=== PATIENT | female | born 1990 | race African-American/Black ===

== ENCOUNTER 2022-04-02 09:44 | Outpatient (CLI) | payer OTHER, SELFPAY ==
[2022-04-02 10:07] LABS: Hematocrit 31.2 % (37.0-47.0); Hemoglobin 8.3 g/dL (12.0-15.0); Immature Platelet Fraction Pct 2.5 % (0.9-11.2); Mean Corpuscular HGB Conc 26.6 g/dl (32-36); Mean Corpuscular Hemoglobin 16.5 pg (26-34); Mean Corpuscular Volume 62.2 fl (80-100); Mean Platelet Volume 10.2 fl (7.4-10.4); Platelet Count Result 345 k/mm3 (150-375); Red Blood Count 5.02 M/mm3 (4.2-5.4); Red Cell Distribution Width 20.1 % (11.5-14.5); White Blood Count 7.2 K/mm3 (4.5-10.0)
== END 2022-04-02 09:45 | disposition home or self-care (01) ==
LOC: ANHLAB 09:47
PROVIDERS: Visit Provider Obstetrics & Gynecology
DX: N92.1 Excessive and frequent menstruation with irregular cycle (principal)
CPT/HCPCS: 36415; 85027; 85055

== ENCOUNTER 2022-04-09 01:26 | Day surgery (SDC) | payer OTHER, SELFPAY ==
[2022-04-01 16:01] VITALS: BMI 43.3
--- NOTE | 2022-04-01 16:22 | PC.NURSE ---
Report to the Outpatient Waiting Room, entrance under the green pavilion located off [facility], at time 0730 on date 04/09/22. OR Time: 0930__. Time changes happen often and if your time is changed the preop area will call you the afternoon before. - You and your visitor will be asked to self-screen and do not enter if you have any COVID symptoms. - We encourage only one visitor and NO visitors under age 16 are allowed at this time. Your visitor will receive communication by the phone number that is given day of service. - The patient visitor is requested to social distance or may leave the building when not with patient due to restrictions. - A mask is required within the hospital. Patients may have clear liquids (water, carbonated beverages, clear teas, apple juice) until 3 hours prior to surgery with a maximum of 20 ounces. - No food from midnight until time of surgery - Infants may have breast milk until 4 hours before surgery, formula 6 hours prior to surgery. - Children will be allowed to drink immediately following surgery. If applicable, please bring a bottle or sippy cup to assist with drinking. Juice, water, soda, and popsicles are readily available. For infants on formula, please bring formula the day of surgery. Pacifiers are allowed. Take the following medications with a SIP of water the morning of surgery: albuterol_ Medications to discontinue per physician _n/a Date to take last dose Please no make-up, nail mohawk, hairspray, perfume, deodorant, or body powder the day of surgery. No jewelry (including any body piercings) or valuables the day of surgery, leave them at home. Please take a shower or bath the night before, or the morning of, surgery with an antibacterial soap. Wear comfortable, loose fitting clothing. Children are encouraged to wear pajamas. - Jewelry must be removed prior to entering the operating room. Rings and piercings that are not removed may be cut off. - The hospital will not accept responsibility for valuables. - Please leave all valuables, including medications, at home the day of surgery. If you are going home after surgery, a licensed over the road driver must drive you home. - NO public transportation without another adult. - We recommend that an adult stay with you for 24 hours following discharge. - We also recommend that you do not drive, make important decision, drink alcoholic beverages, or take any drugs that were not prescribed by your health care provider for at least 24 hours after your discharge time. For Pediatric surgeries, we recommend two adults accompany the child home. Follow any additional instructions given to you from your surgeon. If you or anyone in your household have experienced Covid symptoms in the past week, please notify your surgeon or the nurse liaison at the phone number below for possible testing. Telephone instructions given to Tosha Shaffer and asked if any additional questions and then verbalized understanding. Patient advised to call surgeon office or pre surgery nurse liaison [phone] if any additional questions.
--- NOTE | 2022-04-07 17:54 | PM.IMHP ---
H&P: HPI History of Present Illness Date/Time: 04/07/22 17:54 31-year-old female 3 para 3003 presents with complaints of menstrual cycles lasting 5-7 days 3-4 days very heavy with significant amount of clotting and cramping. Also with a lot of pelvic pressure and cramping throughout the month. This cutting her significant issues at work and socially. We have discussed less definitive treatment in the form of endometrial ablation but at this point she desires definitive care with hysterectomy and ovarian preservation. Recent ultrasound revealed ultrasound with 10 to 12 size uterus and fundal fibroid. Chief Complaint: Menometrorrhagia Review of Systems Review of Systems: All systems reviewed & are unremarkable except as noted in HPI and below PMFSH Past Medical History Medical History Asthma Fibroids Migraines Surgical History Surgical History Delivery by section x 3 H/O tubal ligation (10/08/17) Family History Family History Grandparent Diabetes mellitus maternal grandmother and grandfather Liver cancer maternal grandmother Lung cancer paternal grand father Mother Cerebrovascular accident Social History Social History Smoking packs per day: 1 Smoking cigarettes per day: 20.0 Years smoked: 12 Smoking pack-years: 12.00 Smoking status: Former smoker Tobacco type: cigarettes Smoking end date: 06/21/19 Alcohol intake: never Drinks per week: 4 Substance use: never Substance use type: marijuana Other substance usage details: 2-3 times a week Additional living arrangements comments: 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[employer] Gender identity (if verbalized by the patient): Female Sexual Orientation (if Verbalized by the Patient): Straight or Heterosexual Spiritual care concerns: No Meds Home Medications and Allergies Home Medications Medication Instructions Recorded Confirmed Type albuterol sulfate 90 mcg/actuation 1 puff inhalation Q4H PRN 12/24/21 04/01/22 History aerosol inhaler Shortness Of Breath [id number]-[id number]-[id number] 250 1 tablet PO Q4-6H PRN Migraine 12/24/21 04/01/22 History mg-250 mg-65 mg tablet (Excedrin Headache Migraine) Allergies Allergy/AdvReac Type Severity Reaction Status Date / Time No Known Allergies Allergy Unverified 02/06/22 10:29 Exam Const: General: cooperative, healthy appearing and comfortable Resp: Effort & Inspection: normal respiratory effort Auscultation: clear to auscultation bilaterally Cardio: Rate: regular rate Rhythm: regular rhythm GI: Inspection: normal to inspection and incision Auscultation: normal bowel sounds : External Female Exam: normal external appearance Speculum Exam - Vagina: normal appearance of the vagina Speculum Exam - Cervix: normal appearance of the cervix Bimanual exam- vagina & uterus: enlarged ( 10-12 week size) and Uterine tenderness Bimanual Exam- Adnexa, other: normal adnexae Assessment and Plan Assessment and plan (1) Menometrorrhagia: Code(s): N92.1 - Excessive and frequent menstruation with irregular cycle Status: Acute Assessment and Plan: we will proceed with robotic assisted laparoscopic hysterectomy with bilateral salpingectomy ( she has had a prior tubal ligation will remove what ever segment of tube is remaining). I have discussed with the patient at length regarding the potential for either an abdominal procedure or a mini-laparotomy to remove specimen if unable to be performed robotically. Her history of 3 previous deliveries increases risk of adhesions or other anatomic abnormalities which may result and intraoperative bowel or bladder damage wi
--- NOTE | 2022-04-08 10:34 | P.PNAN_ITS ---
Anes - Initial Pre Proc Eval Procedure: Operation Date: 04/09/22 09:30 Proposed Procedures p Robotic Assisted Total Laparoscopic Hysterectomy with Bilateral Salpingectomy - Robb Martinez MD Date/Time: 04/08/22 10:34 Surgeon: Robb Martinez MD Pre Op Diagnosis: uterine fibroid Patient Data Age: 31 Gender: F Height: 1.6 m Weight: 111 kg Allergies Allergy/AdvReac Type Severity Reaction Status Date / Time No Known Allergies Allergy Verified 04/09/22 07:56 Home Medications Medication Instructions Recorded Confirmed Type albuterol sulfate 90 mcg/actuation 1 puff inhalation Q4H PRN 12/24/21 04/01/22 History aerosol inhaler Shortness Of Breath [id number]-[id number]-zenulgsq 250 1 tablet PO Q4-6H PRN Migraine 12/24/21 04/01/22 History mg-250 mg-65 mg tablet (Excedrin Headache Migraine) Patient hx anesthesia problems: none Family hx anesthesia problems: none Results Review: All pre-operative results and documents have been reviewed as part of the pre- operative evaluation. [facility] Past Medical History Medical History Asthma Fibroids Migraines Surgical History Surgical History Delivery by section x 3 H/O tubal ligation (10/08/17) Family History Family History Grandparent Diabetes mellitus maternal grandmother and grandfather Liver cancer maternal grandmother Lung cancer paternal grand father Mother Cerebrovascular accident Social History Social History Smoking packs per day: 1 Smoking cigarettes per day: 20.0 Years smoked: 12 Smoking pack-years: 12.00 Smoking status: Former smoker Tobacco type: cigarettes Smoking end date: 06/21/19 Alcohol intake: current Drinks per week: 4 Substance use: current Substance use type: marijuana Other substance usage details: 2-3 times a week Living arrangements: with family Additional living arrangements comments: 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[employer] Gender identity (if verbalized by the patient): Female Sexual Orientation (if Verbalized by the Patient): Straight or Heterosexual Spiritual care concerns: No Anes - Eval Final PreProcedure Day of Procedure 04/08/22 10:34 Patient weight: morbidly obese Heart: regular rate and rhythm Lungs: clear to auscultation Airway: Mallampati scale class III Neurological: alert and oriented Last oral intake: >/= 8 hours ASA classification: III Emergent: no Anesthetic plan: proceed Anesthesia type and monitoring: general ETT and standard monitoring Results Review: All pre-operative results and documents have been reviewed as part of the pre- operative evaluation. Informed Consent: The patient's anesthetic plan and its attendant risks and benefits were discussed with the patient/family/POA. Questions were solicited and answers provided to the satisfaction of the patient/family/POA.
[2022-04-09] VITALS (22 sets, daily range): BP systolic 111–146; BP diastolic 51–87; PULSE 62–109; RESP 13–19; TEMP 36.1–37.2; O2SAT 97–100
--- NOTE | 2022-04-09 07:19 | WPDHPUPDATE1 ---
History and Physical Update Update Date/Time: 04/09/22 07:19 History and Physical has been reviewed, including an updated exam of the patient. There are NO changes in the patient's condition. Risks, benefits, and alternatives have been discussed and questions answered. Patient agrees to proceed with procedure.
[2022-04-09] MEDS: LACTATED RINGERS 1,000 ML 30 ML IV CONT ×2 (08:45→13:23)
[2022-04-09] MEDS: KETOROLAC 15 MG/ML VIAL (*BKC) IV PUSH (08:45)
[2022-04-09] MEDS: ACETAMINOPHEN 500 MG TABLET 1000 MG PO (08:45)
[2022-04-09] MEDS: ceFAZolin 2 GM/D5W 50 ML 2 GM/50 ML BAG IVPB (09:42)
--- NOTE | 2022-04-09 11:28 | SUR.OPER ---
1125 DR ZUNIGA IN OR FOR CONSULT
--- NOTE | 2022-04-09 11:42 | SUR.OPER ---
DR ZUNIGA OUT OF OR 1147
[2022-04-09] MEDS: ceFAZolin SODIUM 1 GM VIAL IV PUSH (12:04)
--- NOTE | 2022-04-09 12:13 | SUR.OPER ---
DR ZUNIGA IN OR CONSULT [id number]
--- NOTE | 2022-04-09 13:05 | W.PM.PROC2 ---
Procedure Note - Detailed Date of Procedure 04/09/22 Pre-op Diagnosis 1. Menometrorrhagia 2. Uterine fibroid 3. Previous section x3 Post-op Diagnosis Same (4. Pelvic adhesions 5. Cystotomy) Procedure Performed 1. Laparoscopic assisted supracervical hysterectomy with ovarian preservation 2. Adhesiolysis 3. Repair of bladder defect by Dr. Linares Surgeon Robb Martinez MD Anesthesia General Findings 1. Dense pelvic adhesions 2. Uterine fibroid 3. Enlarged uterus 4. Bladder flap adhesions Description of Procedure Patient was prepped and draped usual manner for this procedure. Cervical instruments placed for uterine mobility. Abdominal trocar sites were marked and trocars were placed under direct visualization. The DA Lloyd system was then attached to the trocars and the surgeon moved to the console. Omental adhesions of throughout as well as significant bladder flap adhesions were noted. The omental adhesions were cauterized and cut to remove them from the operative field. The anatomy of the pelvis was distorted due to multiple previous surgeries and therefore the bladder at this point was filled with 300cc of fluid and was found to be posterior and lateral to the uterus. The round ligaments revealed to be delineated and these were cauterized and cut and the posterior leaf the broad ligament was incised. Anterior flap could not be incised due to adhesions and the location of the fibroid. The fibroid was dissected off of the bladder and the tip of the Medina bulb was noted during this process. There was no significant spillage though definitively the Medina bulb was identified and there was a definitive defect in the bladder through which the tip of the Medina catheter could be seen. At this for the procedure Dr. Linares entered the room and inspected the area in question. Also full dissection of the bladder was undertaken and decision was made to repair this defect later in the case. Therefore the uterus was continued to be dissected and once the uterine vessels had been cauterized and cut along the lower portion of the uterus such that a supracervical hysterectomy was performed. The bed of the cervical stump was cauterized at this point. Irrigation was undertaken and the specimens were placed in Endo-Catch bags. Dr. Velázquez entered the room and using 2 0 Vicryl suture of the defect was closed in a running manner. Bladder was again back filled with 500cc of fluid and no spillage was noted. Irrigation was undertaken and all the old blood was removed. Dorinda was placed over the cervical stump and was hemostatic. Attention was placed the abdominal cavity and the right upper incision was extended slightly to remove the uterus and the fibroids. 0 Vicryl was then used to approximate the fascial edge, subcutaneous tissue was approximated 0 plain, and this incision as well as the other incisions were closed with a subcuticular manner of 4-0 Monocryl. At this point the patient was sent to recovery room in stable condition. Due to starting her case with a hemoglobin of 8 and 500cc blood loss we will be transfusing 2units packed red blood cells. Also we will keep her catheter in place for 1 week. Estimated Blood Loss 500 Drains Yes (Medina) Packing No Pathology Yes Complications Other complications (Cystotomy) Condition Stable Disposition PACU [facility] Billing Surgery - Charge Forward: Surgery Billing
[2022-04-09] MEDS: fentaNYL CITRATE INJ (*CRX) 100 MCG/2 ML VIAL 25 MCG IV PUSH ×4 (13:48→15:22)
--- NOTE | 2022-04-09 14:38 | SUR.PHASEI ---
1413: Simple mask removed.
[2022-04-09] MEDS: FUROSEMIDE INJ 40 MG/4 ML VIAL IV PUSH (15:25)
--- NOTE | 2022-04-09 15:57 | ADMGEN ---
This patient, Tosha Shaffer, was admitted to OB 2nd Floor Room 285-00. Patient/family oriented to hospital policies and general routines including ID bracelet, bed and alarms, visiting hours, pain management, procedures, bathroom and other care routines, personal items, smoking policy, room service/diet, and visiting hours. Information on how to activate the Rapid Response Team has been discussed. Patient/Family are encouraged to report perceived risks to care and to ask questions if they do not understand what they are told or what they should do.
[2022-04-09] MEDS: KETOROLAC 30 MG/ML VIAL (*BKC) IV PUSH (16:14)
[2022-04-09 16:35] LABS: Hematocrit 27.4 % (37.0-47.0); Hemoglobin 7.3 g/dL (12.0-15.0)
[2022-04-09] MEDS: TUBING, BLOOD PLUM PUMP TUBING 1 EACH XX (16:55)
[2022-04-09] MEDS: SODIUM CHLORIDE 0.9% IV 250 ML 30 ML IV CONT (16:55)
[2022-04-09] MEDS: HYDROcodone/acetaminophen (*CRX) 5-325 MG TABLET 1 TAB PO (19:56)
[2022-04-10 00:30] VITALS: BP 128/77; PULSE 88; RESP 18; TEMP 36.1
[2022-04-10] MEDS: IBUPROFEN 600 MG TABLET PO ×2 (00:33→09:17)
[2022-04-10] MEDS: HYDROcodone/acetaminophen (*CRX) 5-325 MG TABLET 1 TAB PO ×3 (00:33→14:52)
[2022-04-10 04:45] VITALS: BP 122/80; PULSE 90; RESP 16; TEMP 36.7
[2022-04-10 05:25] LABS: Basophils Percent Auto 0.2 % (0.2-1.2); Eosinophils Absolute Auto 0.2 K/mm3 (0-0.3); Eosinophils Percent Auto 1.3 % (0-4.4); Hemoglobin 9.4 g/dL (12.0-15.0); Immature Granulocyte Absolute 0.09 K/mm3 (0.00-0.031); Immature Granulocyte Percent A 0.6 % (0-0.5); Immature Platelet Fraction Pct 2.1 % (0.9-11.2); Lymphocytes Absolute Auto 1.69 K/mm3 (0.9-3.2); Mean Corpuscular HGB Conc 29.4 g/dl (32-36); Mean Corpuscular Hemoglobin 19.6 pg (26-34); Mean Corpuscular Volume 66.7 fl (80-100); Mean Platelet Volume 10.4 fl (7.4-10.4); Monocytes Absolute Auto 0.9 K/mm3 (0.1-0.6); Monocytes Percent Auto 5.6 % (2.6-8.5); Neutrophils Absolute Auto 12.5 K/mm3 (1.3-6.7); Neutrophils Percent Auto 81.3 % (45.5-73.1); Platelet Count Result 323 k/mm3 (150-375); Red Cell Distribution Width 24.8 % (11.5-14.5); White Blood Count 15.4 K/mm3 (4.5-10.0)
[2022-04-10 07:47] LABS: Platelet Estimate Adequate (Adequate)
[2022-04-10 07:48] LABS: Hypochromasia 1+ (NORMAL); Schistocytes 1+ (NORMAL)
[2022-04-10 07:49] LABS: Anisocytosis 1+ (NORMAL); Poikilocytosis 1+ (NORMAL)
--- NOTE | 2022-04-10 08:04 | P.PNAN_ITS ---
Anes - Prog Note Post-Op Date/Time: 04/10/22 08:04 Cardiovascular status: normal Respiratory status: normal Airway patency: baseline Mental status: baseline Post-Op hydration status: normal Vital Signs: Last Vital Signs Temp 36.7 C 04/10/22 04:45 Pulse 90 04/10/22 04:45 Resp 16 04/10/22 04:45 BP 122/80 04/10/22 04:45 Pulse Ox 100 04/09/22 20:10 O2 Del Method Room Air 04/09/22 16:00 O2 Flow Rate 8 04/09/22 14:10 Pain Score (VAS): 08/28 I/O: Intake & Output 04/09/22 04/10/22 04/10/22 23:59 07:59 15:59 Intake Total 484 320 Output Total 1300 625 Balance -816 -305 Laboratory Tests 04/10/22 04:54 04/09/22 04/09/22 04/10/22 08:26 13:29 04:54 WBC 15.4 H RBC 4.80 Hgb 7.3 L 9.4 L Hct 27.4 L 32.0 L MCV 66.7 L MCH 19.6 L MCHC 29.4 L RDW 24.8 H Plt Count 323 MPV 10.4 Immature Gran % (Auto) 0.6 H Neut % (Auto) 81.3 H Lymph % (Auto) 11.0 L [place] % (Auto) 5.6 Eos % (Auto) 1.3 Baso % (Auto) 0.2 Lymph # (Auto) 1.69 [place] # (Auto) 0.9 H Eos # (Auto) 0.2 Baso # (Auto) 0.0 Abs Immat Gran (auto) 0.09 H Absolute Neuts (auto) 12.5 H Absolute Nucleated RBC 0.0 Nucleated RBC % 0.0 Platelet Estimate Adequate % Immature Plt Fraction 2.1 Hypochromasia 1+ Poikilocytosis 1+ Anisocytosis 1+ Schistocytes 1+ Blood Type B Positive Antibody Screen Negative Crossmatch See Detail Post-procedural complaints: none Patient Feedback: Patient satisfied with anesthetic care.
--- NOTE | 2022-04-10 08:13 | WPDURCON ---
Assessment and Plan Assessment and plan (1) Bladder injury: Code(s): S37.20XA - Unspecified injury of bladder, initial encounter Status: Acute Assessment and Plan: Intra-operative repair bladder injury Urology Consult Note HPI Date Seen: 04/10/22 Requesting Physician: Robb Martinez MD Primary Care Provider: JEWEL SUPERVISOR PHYSICIAN Consult Narrative Narrative: Tosha Shaffer is a 31 year old female, unknown to our practice in past, bladder was asked to see as an intraoperative consultation to evaluate for possible repair of a bladder injury during the course of robotic hysterectomy. Careful evaluation, both with a distended and decompressed bladder, showed an area of possible bladder wall thickening near the stone but without obvious extravasation of methylene blue stay saline. For specifics on my part of the operative procedure see my dictated operative note. Review of Systems Review of Systems: ROS unobtainable: Yes unobtainable due to endotracheal tube PMFSH Past Medical History Medical History Asthma Fibroids Migraines Surgical History Surgical History Delivery by section x 3 H/O tubal ligation (10/08/17) Family History Family History Grandparent Diabetes mellitus maternal grandmother and grandfather Liver cancer maternal grandmother Lung cancer paternal grand father Mother Cerebrovascular accident Social History Social History Smoking packs per day: 1 Smoking cigarettes per day: 20.0 Years smoked: 12 Smoking pack-years: 12.00 Smoking status: Former smoker Tobacco type: cigarettes Smoking end date: 06/21/19 Alcohol intake: current Drinks per week: 4 Substance use: current Substance use type: marijuana Other substance usage details: 2-3 times a week Living arrangements: with family Additional living arrangements comments: 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[employer] Gender identity (if verbalized by the patient): Female Sexual Orientation (if Verbalized by the Patient): Straight or Heterosexual Spiritual care concerns: No Meds Home Medications and Allergies Home Medications Medication Instructions Recorded Confirmed Type albuterol sulfate 90 mcg/actuation 1 puff inhalation Q4H PRN 12/24/21 04/01/22 History aerosol inhaler Shortness Of Breath gswjwcz-geqocukttdjbu-gzthojyb 250 1 tablet PO Q4-6H PRN Migraine 12/24/21 04/01/22 History mg-250 mg-65 mg tablet (Excedrin Headache Migraine) Allergies Allergy/AdvReac Type Severity Reaction Status Date / Time No Known Allergies Allergy Verified 04/09/22 08:56 Vital Signs Vital Signs - 24 hr 04/09/22 08:49 04/09/22 13:23 04/09/22 13:40 Temperature 98 F 97.5 F L Pulse Rate 67 109 H 80 Respiratory Rate 14 18 17 Blood Pressure 146/73 H 133/75 117/64 Pulse Oximetry 100 100 100 Oxygen Delivery Room Air Simple Face Mask Simple Face Mask Oxygen Flow Rate 8 8 04/09/22 13:55 04/09/22 14:10 04/09/22 14:25 Temperature Pulse Rate 74 75 75 Respiratory Rate 15 15 17 Blood Pressure 113/63 111/63 122/67 Pulse Oximetry 100 100 98 Oxygen Delivery Simple Face Mask Simple Face Mask Room Air Oxygen Flow Rate 8 8 04/09/22 14:40 04/09/22 14:55 04/09/22 15:10 Temperature Pulse Rate 72 68 65 Respiratory Rate 17 14 16 Blood Pressure 122/68 118/66 112/51 L Pulse Oximetry 99 100 100 Oxygen Delivery Room Air Room Air Room Air Oxygen Flow Rate 04/09/22 15:25 04/09/22 15:40 04/09/22 14:34 Temperature 97.7 F Pulse Rate 63 62 75 Respiratory Rate 18 13 18 Blood Pressure 134/79 134/86 119/68 Pulse Oximetry 100 100 97 Oxygen Delivery Room Air Room Air Oxygen Flow Rate 03/22
[2022-04-10 08:15] VITALS: BP 138/72; PULSE 82; RESP 16; TEMP 36.9; O2SAT 100
--- NOTE | 2022-04-10 08:25 | W.PM.PROC2 ---
Procedure Note - Detailed Date of Procedure 04/10/22 Pre-op Diagnosis uterine fibroid, small bladder injury Post-op Diagnosis Same Procedure Performed Repair of a small bladder injury and bladder dome Surgeon Abram Linares MD Description of Procedure Towards the and, and subsequent to completion of robotic hysterectomy by Dr. Martinez, careful inspection of the bladder was undertaken both in a decompressed state and after filling with methylene stained saline to 500 cc. Was no obvious extravasation of urine but there did appear to be about 1-2 cm area in the dome of the bladder where the detrusor muscle had been compromised needed thinning of the bladder wall. I reinforced the detrusor muscle at that site with a running 2-0 Vicryl. The bladder was again filled to 500 cc, again found showed no evidence of extravasation. A discuss management of the Medina catheter with Dr. Martinez and recommended that we leave it indwelling for 1 week. Estimated Blood Loss 500 Packing No Pathology None sent Condition Stable
--- NOTE | 2022-04-10 08:47 | PM.GYNPNOP ---
GAS ENGINE MECHANIC - A/P Postoperative Procedures: Procedures Operation Date: 04/09/22 09:30 Actual Procedure Side Surgeon p Robotic Assisted Total Laparoscopic Hysterectomy with Adhesiolysis Bilateral Robb Martinez MD s Robotic Repair of Bladder Defect Not Applicable Abram Linares MD Time Spent With Patient Time: Total time spent is greater than 50% in coordination of care (as documented) at patient's floor/unit and/or counseling patient: Time with patient: less than 15 minutes GAS ENGINE MECHANIC- PN:Subj Post-Op Subjective Date/time seen: 04/10/22 08:47 31-year-old female postoperative day 1 from laparoscopic supracervical hysterectomy and myomectomy. Cystotomy also occurred which was repaired by Urology. She has tolerated regular diet as on oral pain medication and overall doing well. Physical exam vital signs are stable Abdomen soft and appropriately tender Labs appropriate I have discussed at length the intraoperative findings and need for continued Medina drainage. Also prophylactic antibiotics. Option of leg bag has been discussed and she will decide prior to discharge if she wants to do this. Other questions have been answered and she will return in 1 week for Medina removal. GAS ENGINE MECHANIC - PN: Obj Data Vital Signs Vital Signs: Vital Signs - 24 hr 04/09/22 08:49 04/09/22 13:23 04/09/22 13:40 Temperature 98 F 97.5 F L Pulse Rate 67 109 H 80 Respiratory Rate 14 18 17 Blood Pressure 146/73 H 133/75 117/64 Pulse Oximetry 100 100 100 Oxygen Delivery Room Air Simple Face Mask Simple Face Mask Oxygen Flow Rate 8 8 04/09/22 13:55 04/09/22 14:10 04/09/22 14:25 Temperature Pulse Rate 74 75 75 Respiratory Rate 15 15 17 Blood Pressure 113/63 111/63 122/67 Pulse Oximetry 100 100 98 Oxygen Delivery Simple Face Mask Simple Face Mask Room Air Oxygen Flow Rate 8 8 04/09/22 14:40 04/09/22 14:55 04/09/22 15:10 Temperature Pulse Rate 72 68 65 Respiratory Rate 17 14 16 Blood Pressure 122/68 118/66 112/51 L Pulse Oximetry 99 100 100 Oxygen Delivery Room Air Room Air Room Air Oxygen Flow Rate 04/09/22 15:25 04/09/22 15:40 04/09/22 14:34 Temperature 97.7 F Pulse Rate 63 62 75 Respiratory Rate 18 13 18 Blood Pressure 134/79 134/86 119/68 Pulse Oximetry 100 100 97 Oxygen Delivery Room Air Room Air Oxygen Flow Rate 04/09/22 14:40 04/09/22 14:45 04/09/22 14:50 Temperature 96.9 F L 96.9 F L 98.0 F Pulse Rate 75 74 77 Respiratory Rate 17 13 19 Blood Pressure 122/68 114/59 L 123/70 Pulse Oximetry 99 100 100 Oxygen Delivery Oxygen Flow Rate 04/09/22 15:16 04/09/22 16:55 04/09/22 16:56 Temperature 97.4 F L 97.7 F 97.5 F L Pulse Rate 69 82 83 Respiratory Rate 18 16 16 Blood Pressure 127/87 127/66 143/74 H Pulse Oximetry 100 100 100 Oxygen Delivery Oxygen Flow Rate 04/09/22 16:00 04/09/22 16:00 04/09/22 17:10 Temperature 97.2 F L 98.0 F Pulse Rate 78 79 Respiratory Rate 18 18 Blood Pressure 137/73 136/70 Pulse Oximetry 100 100 Oxygen Delivery Room Air Oxygen Flow Rate 04/09/22 18:10 04/09/22 19:10 04/09/22 20:10 Temperature 97.3 F L 99.0 F 98.3 F Pulse Rate 85 81 96 Respiratory Rate 16 18 18 Blood Pressure 132/69 125/85 120/66 Pulse Oximetry 100 100 100 Oxygen Delivery Oxygen Flow Rate 04/09/22 20:10 04/10/22 00:30 04/10/22 04:45 Temperature 98.3 F 96.9 F L 98.0 F Pulse Rate 96 88 90 Respiratory Rate 18 18 16 Blood Pressure 120/66 128/77 122/80 Pulse Oximetry 100 Oxygen Delivery Oxygen Flow Rate Intake/Output Intake/Output: Intake & Output 04/07/22 04/08/22 04/09/22 04/10/22 23:59 23:59 23:59 23:59 Intake Total 1284 320 Output Total 1520 625 Balance -236 -305 Meds/Results Medications: Active Medications Generic Name Dose Route Start Last Admin Trade Name Freq PRN Reason Stop Dose Admin Hydrocodone Bitart/Acetaminophen 1 tab 04/09/22 15:52 04/10/22 00:33 Hydrocodone/Acetaminophen (*Crx) 5-325 Mg Table
[2022-04-10] MEDS: SIMETHICONE 80 MG TAB.CHEW PO ×2 (09:18→14:52)
--- NOTE | 2022-04-10 10:11 | WPDUROPN2 ---
Progress Note: A&P Assessment and Plan (1) Menometrorrhagia: Code(s): N92.1 - Excessive and frequent menstruation with irregular cycle Status: Acute Assessment and Plan: Tolerating catheter very well. I discussed findings in OR with pt. She understands reasoning behing indwelling catheter and is comfortble with plan. (2) Bladder injury: Code(s): S37.20XA - Unspecified injury of bladder, initial encounter Status: Acute Subjective Subjective Date/Time Seen: 04/10/22 10:11 Comfortable, tolerating breakfast Review of Systems Cardiovascular: Cardiovascular: Denies chest pain, Denies lightheadedness, Denies palpitations and Denies dyspnea Respiratory: Respiratory: Denies dyspnea Gastrointestinal: Gastrointestinal: Denies diarrhea, Denies nausea and Denies vomiting Genitourinary: Genitourinary: Denies hematuria and Denies dysuria Endocrine: Endocrine: Denies palpitations Exam Const: General: no acute distress Resp: Effort & Inspection: normal respiratory effort GI: Inspection: non-distended GI Palp: No abdominal tenderness and No Guarding due to palpation present (GI) Auscultation: normal bowel sounds Urinary Catheter: Urinary Catheter: patent and draining and urine clear Objective Data Vital Signs Vital Signs: Vital Signs - 24 hr 04/09/22 13:23 04/09/22 13:40 04/09/22 13:55 Temperature 97.5 F L Pulse Rate 109 H 80 74 Respiratory Rate 18 17 15 Blood Pressure 133/75 117/64 113/63 Pulse Oximetry 100 100 100 Oxygen Delivery Simple Face Mask Simple Face Mask Simple Face Mask Oxygen Flow Rate 8 8 8 04/09/22 14:10 04/09/22 14:25 04/09/22 14:40 Temperature Pulse Rate 75 75 72 Respiratory Rate 15 17 17 Blood Pressure 111/63 122/67 122/68 Pulse Oximetry 100 98 99 Oxygen Delivery Simple Face Mask Room Air Room Air Oxygen Flow Rate 8 04/09/22 14:55 04/09/22 15:10 04/09/22 15:25 Temperature Pulse Rate 68 65 63 Respiratory Rate 14 16 18 Blood Pressure 118/66 112/51 L 134/79 Pulse Oximetry 100 100 100 Oxygen Delivery Room Air Room Air Room Air Oxygen Flow Rate 04/09/22 15:40 04/09/22 14:34 04/09/22 14:40 Temperature 97.7 F 96.9 F L Pulse Rate 62 75 75 Respiratory Rate 13 18 17 Blood Pressure 134/86 119/68 122/68 Pulse Oximetry 100 97 99 Oxygen Delivery Room Air Oxygen Flow Rate 04/09/22 14:45 04/09/22 14:50 04/09/22 15:16 Temperature 96.9 F L 98.0 F 97.4 F L Pulse Rate 74 77 69 Respiratory Rate 13 19 18 Blood Pressure 114/59 L 123/70 127/87 Pulse Oximetry 100 100 100 Oxygen Delivery Oxygen Flow Rate 04/09/22 16:55 04/09/22 16:56 04/09/22 16:00 Temperature 97.7 F 97.5 F L 97.2 F L Pulse Rate 82 83 78 Respiratory Rate 16 16 18 Blood Pressure 127/66 143/74 H 137/73 Pulse Oximetry 100 100 100 Oxygen Delivery Oxygen Flow Rate 04/09/22 16:00 04/09/22 17:10 04/09/22 18:10 Temperature 98.0 F 97.3 F L Pulse Rate 79 85 Respiratory Rate 18 16 Blood Pressure 136/70 132/69 Pulse Oximetry 100 100 Oxygen Delivery Room Air Oxygen Flow Rate 04/09/22 19:10 04/09/22 20:10 04/09/22 20:10 Temperature 99.0 F 98.3 F 98.3 F Pulse Rate 81 96 96 Respiratory Rate 18 18 18 Blood Pressure 125/85 120/66 120/66 Pulse Oximetry 100 100 100 Oxygen Delivery Oxygen Flow Rate 04/10/22 00:30 04/10/22 04:45 04/10/22 08:15 Temperature 96.9 F L 98.0 F 98.5 F Pulse Rate 88 90 82 Respiratory Rate 18 16 16 Blood Pressure 128/77 122/80 138/72 Pulse Oximetry 100 Oxygen Delivery Oxygen Flow Rate Intake/Output Intake/Output: Intake & Output 04/07/22 04/08/22 04/09/22 04/10/22 23:59 23:59 23:59 23:59 Intake Total 1284 320 Output Total 1520 625 Balance -236 -305 Meds/Results Medications: Active Medications Generic Name Dose Route Start Last Admin Trade Name Freq PRN Reason Stop Dose Admin Hydrocodone Bitart/Acetaminophen 1 tab 04/09/22 15:52 04/10/22 09:16 Hydrocodone/A
[2022-04-10 10:30] VITALS: PULSE 82; RESP 16; O2SAT 100
== END 2022-04-10 15:39 | disposition home or self-care (01) ==
LOC: ANHSURGERY 07:22 → ANHOB2 04-10 08:57
PROVIDERS: Urology; Visit Provider Obstetrics & Gynecology
PROC: (CPT 58542; principal; 2022-04-09 09:30)
PROC: (CPT 57240; 2022-04-09 09:30)
DX: N92.1 Excessive and frequent menstruation with irregular cycle (principal); N73.6 Female pelvic peritoneal adhesions (postinfective); N99.71 Accidental puncture and laceration of a genitourinary system organ or structure during a genitourinary system procedure; D25.9 Leiomyoma of uterus, unspecified; Z87.891 Personal history of nicotine dependence; F12.90 Cannabis use, unspecified, uncomplicated; Z98.891 History of uterine scar from previous surgery; E66.01 Morbid (severe) obesity due to excess calories; Z68.41 Body mass index [BMI] 40.0-44.9, adult
CPT/HCPCS: 51999; 58542; S2900; 36415; 36430; 85014; 85018; 85025; 85055; 86850; 86900; 86901; 86920; 88307; 99199; A9270; J0690; J1100; J1885; J1940; J2250; J2405; J2704; J3010; J7030; J7050; J7120; P9016; Q9968